=== PATIENT | female | born 1980 | race Caucasian/White ===

== ENCOUNTER 2016-02-29 20:46 | Emergency (ER) | payer OTHER ==
[2016-02-29] MEDS ORDERED: OPTIRAY 350 100 ML VIAL HMH IV ONE (20:47)
[2016-02-29] MEDS ORDERED: TDaP 0.5 ML VIAL IM.VACC ONE (23:46)
[2016-02-29] MEDS ORDERED: DILAUDID 1 MG/ML AMP ONE (23:46)
== END 2016-03-01 00:49 | disposition home or self-care (01) ==
LOC: ER 20:46
DX: M79.661 Pain in right lower leg (principal)
CPT/HCPCS: 36415; 71260; 80053; 85025; 85379; 93971; 99284; Q9967

== ENCOUNTER 2016-03-01 17:31 | Emergency (ER) | payer OTHER ==
[2016-03-01] MEDS ORDERED: SODIUM CHLORIDE 0.9% 100 ML IV ONE (19:15)
[2016-03-01] MEDS ORDERED: CEFTRIAXONE 1 GM VIAL ONE (19:15)
[2016-03-01] MEDS ORDERED: ONDANSETRON 4 MG VIAL ONE (19:15)
[2016-03-01] MEDS ORDERED: KETOROLAC 30 MG/ML VIAL ONE (19:15)
[2016-03-01] MEDS ORDERED: SODIUM CHLORIDE 0.9% 1,000 ML ONE (19:15)
[2016-03-01] MEDS ORDERED: DILAUDID 1 MG/ML AMP ONE (20:07)
[2016-03-01] MEDS ORDERED: DIPHENHYDRAMINE 50 MG/ML VIAL ONE (20:58)
== END 2016-03-01 22:32 | disposition home or self-care (01) ==
LOC: ER 17:31
DX: N30.01 Acute cystitis with hematuria (principal); N12 Tubulo-interstitial nephritis, not specified as acute or chronic; N28.1 Cyst of kidney, acquired; R59.9 Enlarged lymph nodes, unspecified
CPT/HCPCS: 36415; 74176; 80053; 81001; 83690; 84703; 85025; 87077; 87088; 87186; 96361; 96365; 96375; 99285; J0696; J1170; J2405